=== PATIENT | male | born 1995 | race Caucasian/White ===

== ENCOUNTER 2020-11-19 08:41 | Emergency (ER) | payer SELFPAY ==
[~2020-11-19] VITALS: Ht 165.1 cm; Wt 79.5 kg
[2020-11-19 09:00] VITALS: TEMP 98.8
[2020-11-19] MEDS ORDERED: CEPHALEXIN500 M1 PO (10:09)
[2020-11-19 10:13] VITALS: BP 126/63; PULSE 64
== END 2020-11-19 10:14 | disposition home or self-care (01) ==
LOC: COL.ER 08:41
DX: L03.316 Cellulitis of umbilicus (principal)